=== PATIENT | male | born 1960 | race Caucasian/White ===

== ENCOUNTER 2020-04-03 07:38 | Outpatient (CLI) | payer OTHER, SELFPAY ==
[2020-04-03 08:10] LABS: Hematocrit 49.5 % (42.0-52.0); Hemoglobin 16.2 g/dL (14.0-18.0); Mean Corpuscular HGB Conc 32.7 g/dl (32-36); Mean Corpuscular Hemoglobin 31.3 pg (26-34); Mean Corpuscular Volume 95.6 fl (80-100); Mean Platelet Volume 10.1 fl (7.4-10.4); Platelet Count Result 301 k/mm3 (150-375); Red Blood Count 5.18 M/mm3 (4.6-6.20); Red Cell Distribution Width 14.5 % (11.5-14.5); White Blood Count 12.9 K/mm3 (4.5-10.0)
[2020-04-03 08:27] LABS: Alanine Aminotransferase 40 U/L (4-50); Albumin Level 4.6 g/dL (3.5-5.1); Alkaline Phosphatase 68 U/L (38-126); Aspartate Amino Transferase 42 U/L (17-59); Bilirubin,Total 0.7 mg/dL (0.2-1.3); Blood Urea Nitrogen 19 mg/dL (9-20); Calcium 9.8 mg/dL (8.4-10.2); Carbon Dioxide 32 mmol/L (22-30); Chloride 98 mmol/L (98-107); Cholesterol 315 mg/dL (0-200); Estimated Glomerular Filt Rate > 60; Glucose 114 mg/dL (75-110); HDL Direct 36 mg/dL; Potassium 5.1 mmol/L (3.4-5.0); Sodium 136 mmol/L (137-145); Triglycerides 269 mg/dL (<150)
[2020-04-03 08:38] LABS: LDL Cholesterol Direct 199 mg/dL
[2020-04-03 08:54] LABS: Thyroid Stimulating Hormone 0.839 uIU/mL (0.465-4.680)
[2020-04-03 09:05] LABS: Free T4 Free Thyroxine 1.25 ng/mL (0.78-2.19)
== END 2020-04-03 07:39 | disposition home or self-care (01) ==
LOC: ANHLAB 07:40
PROVIDERS: PCP Internal Medicine; Visit Provider Internal Medicine
DX: E03.9 Hypothyroidism, unspecified (principal); Q45.3 Other congenital malformations of pancreas and pancreatic duct; R53.83 Other fatigue
CPT/HCPCS: 36415; 80053; 80061; 84439; 84443; 85027

== ENCOUNTER 2020-07-24 08:11 | Outpatient (CLI) | payer OTHER, SELFPAY ==
[2020-07-24 08:37] LABS: Alanine Aminotransferase 29 U/L (4-50); Albumin Level 4.3 g/dL (3.5-5.1); Alkaline Phosphatase 62 U/L (38-126); Anion Gap 5 mmol/L (8-16); Aspartate Amino Transferase 32 U/L (17-59); Bilirubin,Total 0.6 mg/dL (0.2-1.3); Blood Urea Nitrogen 22 mg/dL (9-20); Calcium 9.2 mg/dL (8.4-10.2); Carbon Dioxide 34 mmol/L (22-30); Chloride 100 mmol/L (98-107); Cholesterol 290 mg/dL (0-200); Estimated Glomerular Filt Rate > 60; Glucose 112 mg/dL (75-110); HDL Direct 32 mg/dL; Potassium 4.1 mmol/L (3.4-5.0); Sodium 139 mmol/L (137-145); Triglycerides 231 mg/dL (<150)
[2020-07-24 08:49] LABS: LDL Cholesterol Direct 193 mg/dL
== END 2020-07-24 08:12 | disposition home or self-care (01) ==
PROVIDERS: PCP Internal Medicine; Visit Provider Internal Medicine
DX: R73.9 Hyperglycemia, unspecified (principal); E78.5 Hyperlipidemia, unspecified
CPT/HCPCS: 36415; 80053; 80061

== ENCOUNTER 2020-11-25 09:05 | Outpatient (CLI) | payer OTHER, SELFPAY ==
--- NOTE | ~2020-11-25 | MR_ITS ---
EXAMINATION: MR cervical spine wo con EXAM DATE: 11/25/2020 09:48 INDICATION: Head and neck pain for a few months. Cervicalgia. TECHNIQUE: Multi-sequential, multiplanar MR images of the cervical spine were obtained without contra st. Axial T2, axial T2 MERGE sequence. Sagittal T1, T2, T2 fat saturation images also obtained. Com parison is made to prior examination from 03/19/2006. FINDINGS: Interval cervical fusion C4-6. There is posterior fusion C6-T1. Osseous fusion of the C7-T 1 vertebral bodies. Moderate to severe disc disease C3-4 and moderate at the imaged upper thoracic le vels. The vertebral bodies are aligned in the AP dimension. The spinal cord signal intensity and i ntrinsic morphology is normal. Cervicomedullary junction is normal in appearance. There are no susp icious marrow signal abnormalities. Paraspinal soft tissue is unremarkable. Level by level evaluation: C2-C3: There is a mild diffuse disc bulge. Uncovertebral joint arthropathy: Mild left. Facet joint arthropathy: Moderate left, mild right. Neural foraminal stenosis: Moderate left. Central canal stenosis: No stenosis. C3-C4: There is a mild to moderate diffuse disc bulge asymmetric to the left Uncovertebral joint arthropathy: Moderate left, mild to moderate right. Facet joint arthropathy: Moderate to severe left, mild to moderate right. Neural foraminal stenosis: Severe left, mild right. Central canal stenosis: Mild . Central canal measures 7-8 mm in mid sagittal AP diameter . C4-C5: This level is fused. Uncovertebral joint arthropathy: Mild. Facet joint arthropathy: Mild. Neural foraminal stenosis: Mild bilateral. Central canal stenosis: No stenosis. C5-C6: This level is fused. Uncovertebral joint arthropathy: Moderate bilateral. Facet joint arthropathy: Mild bilateral. Neural foraminal stenosis: Moderate left, mild to moderate right. Central canal stenosis: No stenosis. C6-C7: There is a mild diffuse disc bulge. Uncovertebral joint arthropathy: Moderate bilateral. Facet joint arthropathy: Mild to moderate bilateral. Neural foraminal stenosis: Moderate bilateral. Central canal stenosis: Minimal. C7-T1: This level is fused. Uncovertebral joint arthropathy: Mild. Facet joint arthropathy: Poorly visualized. Neural foraminal stenosis: Mild. Central canal stenosis: No stenosis. IMPRESSION: 1. Cervical thoracic fusion. 2. C3-4 severe left neural foraminal stenosis. 3. Less stenosis at the levels. Reviewed, dictated and finalized at location A. Y II PAINTER
== END 2020-11-25 09:06 ==
PROVIDERS: PCP Internal Medicine; Visit Provider Internal Medicine
DX: M54.2 Cervicalgia (principal); Z98.1 Arthrodesis status; M48.02 Spinal stenosis, cervical region
CPT/HCPCS: 72141

== ENCOUNTER 2022-07-23 07:48 | Outpatient (CLI) | payer OTHER, SELFPAY ==
[2022-07-23 08:21] LABS: Alanine Aminotransferase 25 U/L (6-50); Albumin Level 3.9 g/dL (3.5-5.1); Alkaline Phosphatase 44 U/L (38-126); Anion Gap 7 mmol/L (8-16); Aspartate Amino Transferase 26 U/L (17-59); Bilirubin,Total 0.5 mg/dL (0.2-1.3); Blood Urea Nitrogen 21 mg/dL (9-20); Calcium 8.6 mg/dL (8.4-10.2); Carbon Dioxide 30 mmol/L (22-30); Chloride 103 mmol/L (98-107); Cholesterol 165 mg/dL (0-200); Estimated Glomerular Filt Rate > 60; Glucose 104 mg/dL (65-110); HDL Direct 31 mg/dL; Potassium 4.5 mmol/L (3.4-5.0); Sodium 140 mmol/L (137-145); Triglycerides 136 mg/dL (<150)
[2022-07-23 08:33] LABS: LDL Cholesterol Direct 97 mg/dL
== END 2022-07-23 07:49 | disposition home or self-care (01) ==
PROVIDERS: PCP Internal Medicine; Visit Provider Internal Medicine
DX: E78.5 Hyperlipidemia, unspecified (principal)
CPT/HCPCS: 36415; 80053; 80061

== ENCOUNTER 2024-09-27 12:32 | Outpatient (CLI) | payer MEDICARE, OTHER, SELFPAY ==
--- NOTE | ~2024-09-27 | XR_ITS ---
XR hip BI 2V w AP pelvis Ordering provider: Victoriano Rivera DO History: . M25.559 - Pain in unspecified hip . Comparison: None. FINDINGS: BONES: No acute fracture or dislocation. HIP JOINT SPACES: Normal. SACROILIAC JOINT SPACES/LUMBAR SPINE: The sacroiliac joint spaces are normal. Mild degenerative woo es of the visualized lower lumbar spine. Postoperative changes in the lower lumbar area. PUBIC SYMPHYSIS: Normal. SOFT TISSUES: Normal. IMPRESSION: No acute osseous abnormality of the bilateral hips and pelvis. Reviewed, dictated and finalized at location A. REPRESENTATIVE
== END 2024-09-27 12:33 | disposition home or self-care (01) ==
PROVIDERS: PCP Internal Medicine; Visit Provider Internal Medicine
DX: M25.551 Pain in right hip (principal); M25.552 Pain in left hip
CPT/HCPCS: 73521

== ENCOUNTER 2024-12-11 09:12 | Outpatient (CLI) | payer MEDICARE, SELFPAY ==
--- OUTSIDE RECORDS SUMMARY | 2024-12-11 10:08 | XMS_ITS | Clinical Summary ---
Author Organization [facility] Address [address] [place] [address] Care Team Providers Care Tour Operator Name Role Phone Rj Bryan MD Primary Care Provider [phone] Jose L Draper MD Unavailable [phone] Allergies Active Allergy Reactions Criticality Noted Date Comments Hydromorphone Hypotension High 08/13/2019 Morphine Hypotension High 01/22/2021 Medications gabapentin (NEURONTIN) 300 mg capsule Take 2 capsules (600 mg total) by mouth 2 (two) times a day 6 Active niacin 500 mg tablet Take 3 tablets (1,500 mg total) by mouth nightly 3 caps at bedtime Active calcium carbonate (OS-MANJULA) 1,500 mg (600 mg of elemental calcium) tablet Take 600 mg by mouth 2 (two) times a day 9 Active ascorbic acid (VITAMIN C) 1,000 mg tablet Take 0.5 tablets (500 mg total) by mouth daily Active amitriptyline (ELAVIL) 25 mg tablet Take 1 tablet (25 mg total) by mouth nightly 9 Active naproxen (NAPROSYN) 500 mg tablet Take 1 tablet (500 mg total) by mouth 2 (two) times a day as needed for pain 50 tablet 9 Active omega-3 fatty acids 1,000 mg capsule Take 2 g by mouth daily Active omeprazole (PriLOSEC) 20 mg capsule Take 1 capsule (20 mg total) by mouth daily Active LORazepam (ATIVAN) 0.5 mg tablet Take 1 tablet (0.5 mg total) by mouth 2 (two) times a day as needed 0 2 Active testosterone cypionate (DEPO-TESTOTERO NE) 200 mg/mL injection Inject 1.5 mL (300 mg total) into the muscle as instructed every 30 (thirty) days 1.5 mL monthly 2 2 Active levothyroxine (SYNTHROID) 88 mcg tablet Take 1 tablet (88 mcg total) by mouth daily 3 Active sildenafiL (VIAGRA) 50 mg tablet Take 1 tablet (50 mg total) by mouth daily 4 Active multivitamin-mi nerals-lutein tablet Take by mouth daily Active indapamide (LOZOL) 1.25 mg tablet Take 1 tablet (1.25 mg total) by mouth daily 90 tablet 3 4 Active ezetimibe (ZETIA) 10 mg tablet Take 1 tablet (10 mg total) by mouth daily 90 tablet 3 4 Active atorvastatin (LIPITOR) 40 mg tablet TAKE 1 TABLET BY MOUTH DAILY 100 tablet 2 4 Active amLODIPine (NORVASC) 10 mg tablet TAKE 1 TABLET BY MOUTH NIGHTLY 100 tablet 2 4 Active Active Problems Problem Noted Date Diagnosed Date Primary hypertension 04/17/2023 Syncope 04/17/2023 Other hyperlipidemia 04/17/2023 Bradycardia 04/17/2023 Acute pancreatitis, unspecif ied complication status, unspecified pancreatitis type 10/26/2022 Chronic eczematous otitis externa of left ear Low back pain, non-specific 05/06/2021 Assessment & Plan (05/06/2021 1:49 PM CDT): Mr. Patino has a primary complaint of low back pain worst when going from a sitting to standing position. He can get episodic burning through the bilateral buttocks and posterior thighs with certain activities. We will get AP/F/E L-spine films and a new MRI of his lumbar spine to look for adjacent level stenosis and instability. We will refer him to Dr. Shoemaker for possible lumbar injections pending the results of these studies. I plan to see him in 6 months for follow-up. Cervicalgia 01/27/2021 Assessment & Plan (05/06/2021 1:50 PM CDT): Mr. Patino had cervicalgia with pseudoarthrosis at C56 and C67 with foraminal stenosis at these levels. His symptoms are largely resolved after injections by Dr. Shoemaker. We will continue to watch this conservatively. Assessment & Plan (01/27/2021 1:13 PM CDT): Mr. Patino has moderate to severe neck pain which is worse when coughing. He notes some numbness and tingling in his hands associated with this. We will get a CT myelogram of the cervical spine to evaluate for fusion and for any adjacent level compression to explain his symptoms. We will speak to him by phone about the results once they have been reviewed. We will set up a scheduled follow-up appointment in 4 months time I Pancreatic mass 08/13/2019 Constipation Surgical History Surgery Date Site/Laterality Comments EPIDURAL INJECTION LUMBOSACRAL 08/26/2016 N/A EPIDURAL INJECTION LUMBOSACRAL 07/15/2016 N/A VENTRAL HERNIA REPAIR With Mesh NECK SURGERY BACK SURGERY 09/25/2010 - 09/24/2011 L4-5 PSF ([facility]) SPINAL FUSION 09/25/2009 - 09/24/2010 C4-6 ACDF [facility] SPINAL FUSION 09/25/2013 - 09/24/2014 C5-7 PCF [facility] Medical History Medical History Date Comments Prostate hypertrophy Chronic back pain Hypothyroidism Hypertension Prostate disorder Arthritis Skin cancer Family History Medical History Relation Name Comments Diabetes Father Lung cancer Father Hypertension Mother Relation Name Status Comments Father Mother Social History Tobacco Use Types Packs/Day Years Used Date Smoking Tobacco: Never Cigarettes Smokeless Tobacco: Never Comments:Only smoked during college Alcohol Use Standard Drinks/Week Comments Defer 0 (1 standard drink = 0.6 oz pur e alcohol) AUDIT-C Answer Date Recorded Q1: How often do you have a drink containing alcohol? Never 10/27/2022 Q2: How many drinks containi ng alcohol do you have on a typical day when you are drinking? Patient does not drink Q3: How often do you have si x or more drinks on one occasion? Never 10/27/2022 PHQ-2 Answer Date Recorded PHQ-2 Total Score (If total score is 3 or more points, staff should administer the PHQ-9) 4 12/30/2020 Personal Safety Answer Date Recorded Have you ever been in or are you currently in a harmful physical or emotional relationship or is someone making you feel afraid or unsafe? 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 Gender Identity Male 06/05/2023 5:11 PM CDT Sexual Orientation Straight 06/05/2023 5: 11 PM CDT Obstetrics History Last Filed Vital Signs Vital Sign Reading Time Taken Comments Blood Pressure 136/79 06/24/2024 2:51 PM CDT Pulse 85 06/24/2024 2:51 PM CDT Temperature 37.1 C (98.8 F) 04/14/2023 3:38 AM CDT Respiratory Rate 22 04/14/2023 3:45 AM CDT Oxygen Saturation 97% 06/12/2024 3:29 PM CDT Inhaled Oxygen Concentration - - Weight 89.4 kg (197 lb) 06/12/2024 3:29 PM CDT Height 175.3 cm (5' 9 ) 06/12/2024 3:29 PM CDT Body Mass Index 29.09 06/12/2024 3:29 PM CDT Plan of Treatment Health Maintenance Due Date Last Done Comments Colon Cancer Screening-Colonoscopy 1960 Hepatitis C Screening 1960 Prostate Cancer Screening-PSA 1958 DTaP/Tdap/Td Vaccine (1 - Tdap) 1969 Hepatitis B Screening 1976 Pneumococcal vaccine 65+ (1 of 2 - PCV) 1977 Zoster Vaccine (1 of 2) 2008 Depression Screening 12/30/2021 12/30/2020, 12/31/19 21 Well Visit 65+ 2023 Fall Risk Assessment 10/28/2023 10/28/2022 Influenza Vaccine (#1) [address] [place] [address] [employer] OPEN ACCESS MEDICARE [employer] [facility] MED[facility] Address: [address] [address] [place] [address] MEDICARE [employer] [facility] MED[facility] Address: [address] [address] [place] [address] Advance Directives For more information, please contact: [phone] * Full Code (Latest Code Status on File) Date Activated Date Inactivated Comments 10/26/2022 9:48 PM 10/29/2022 4:50 PM * Full Code Date Activated Date Inactivated Comments 08/13/2019 3:50 AM 08/14/2019 3:59 PM Care Teams Tour Operator Relationship Specialty Start Date End Date Rj Bryan MD [address] [facility] [address] [place] [address] PCP - General 09/10/19 Jose L Draper MD [address] [facility] [address] [place] [address] Referring Physician Gastroenterology 01/21/20
--- OUTSIDE RECORDS SUMMARY | 2024-12-11 10:08 | XMS_ITS | Clinical Summary ---
Author Organization [facility] Address [facility] [place] [address] Care Team Providers Care Drum Drier Name Role Phone Rj Bryan MD Primary Care Provider [phone] Allergies Active Allergy Reactions Criticality Noted Date Comments Hydromorphone Other (see comment) High 03/19/2021 States lowers heart rate and blood pressure drastically. Morphine Other (see comment) High 03/19/2021 Low blood pressure, low heart rate drastically. Medications amitriptyline 25 MG tablet Take 25 mg by mouth nightly at bedtime. Active levothyroxine 125 MCG tablet Take 125 mcg by mouth every morning. Active gabapentin 300 MG capsule Take 300 mg by mouth 2 (two) times a day. Active naproxen 500 MG tablet Take 500 mg by mouth 2 (two) times daily with meals. Active calcium, elemental, 600 MG tablet Take 600 mg by mouth daily. Active lisinopril 20 MG tablet Take 20 mg by mouth daily. Active esomeprazole 20 MG capsule Take 20 mg by mouth 2 (two) times a day. Active finasteride 5 MG tablet Take 5 mg by mouth daily. Active niacin 500 MG Tab Take 2 tablets by mouth 3 (three) times daily. after meals Active omega-3 fatty acid 500 MG capsule Take 1,000 mg by mouth daily. Active Multiple Vitamin (MULTIVITAMIN ADULT OR) Take 1 tablet by mouth daily. Active Ascorbic Acid (VITAMIN C) 500 MG Cap Take 1 capsule by mouth daily. Active HYDROcodone-lalo taminophen 10-325 MG tablet Take 1 tablet by mouth every 6 (six) hours as needed for Pain. Active diazePAM 10 MG tablet 09/29/2021 Active finasteride 1 MG tablet 5 mg daily. Active levothyroxine 88 MCG tablet 08/20/2021 Activ e lisinopril 40 MG tablet 08/20/2021 Active LORazepam 0.5 MG tablet 05/14/2021 Active Naproxen-Esomep razole 500-20 MG Tab EC 1 tablet 2 (two) times daily. Active omeprazole 20 MG capsule Take 20 mg by mouth daily. Active testosterone cypionate 200 MG/ML injection 10/15/2021 Act yumi Ascorbic Acid 1000 MG Tab 500 mg daily. Active niacin 500 MG Tab Take 500 mg by mouth. Active fish oil (OMEGA-3 FATTY ACID) 1000 MG Cap capsule Active Active Problems Problem Noted Date Diagnosed Date Lumbar radiculopathy 07/30/2021 Family History Medical History Relation Comments COPD Brother Cancer Father lung cancer Father Alzheimers Mother Relation Status Comments Brother Alive Father Mother Social History Tobacco Use Types Packs/Day Years Used Date Smoking Tobacco: Former Smokeless Tobacco: Never Comments:stated smoked in Archive[employer] school not no more. Alcohol Use Standard Drinks/Week Comments Yes 0 (1 standard drink = 0.6 oz pur e alcohol) socially Education Answer Date Recorded What is the highest level of school you have completed or the highest degree you have received? 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 Not on file Not on file No t on file Last Filed Vital Signs Vital Sign Reading Time Taken Comments Blood Pressure 142/89 11/17/2021 9:23 AM WOOD MACHINIST APPRENTICE Pulse 72 11/17/2021 9:23 AM WOOD MACHINIST APPRENTICE Temperature 36.7 C (98.1 F) 11/17/2021 7:50 AM WOOD MACHINIST APPRENTICE Respiratory Rate 16 11/17/2021 9:13 AM WOOD MACHINIST APPRENTICE Oxygen Saturation 97% 11/17/2021 9:23 AM WOOD MACHINIST APPRENTICE Inhaled Oxygen Concentration - - Weight 93.4 kg (206 lb) 11/17/2021 7:50 AM WOOD MACHINIST APPRENTICE Height 175.3 cm (5' 9 ) 11/17/2021 7:50 AM WOOD MACHINIST APPRENTICE Body Mass Index 30.42 11/17/2021 7:50 AM WOOD MACHINIST APPRENTICE Plan of Treatment Health Maintenance Due Date Last Done Comments Colorectal Cancer Screening Colonoscopy (10 Years) 1958 Hepatitis C 1976 DTaP, Tdap and Td Vaccines ( 1 - Tdap) 1977 Zoster Vaccines (1 of 2) 2008 Pneumococcal Vaccine: 65+ Ye ars (1 of 1 - PCV) 2023 COVID-19 Vaccine (1 - 2023-2 5 season) 2024 Influenza Adult (#1) 2024 RSV Immunization or 60+ Years (1 - 1-dose 75+ series) 2033 Meningococcal B Vaccine Aged Out No l onger eligible based on patient's age to complete this topic Meningococcal Vaccine Aged Out No peyton chip eligible based on patient's age to complete this topic RSV Immunizations Under 20 Months Aged Out No longer eligible based on patient's age to complete [place] [address] [employer] Advance Directives Documents on File Type Date Recorded 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
--- OUTSIDE RECORDS SUMMARY | 2024-12-11 10:08 | XMS_ITS | Encounter Summary ---
Author Organization [facility] Address [address] [facility] [place] [address] Care Team Providers Care Blacksmith Supervisor Name Role Phone Delon Powell MD Primary Care Provider [phone] Encounter Details Date Type Department Care Team (Late st Contact Info) Description 03/01/2018 Lab Requisition [facility] [address] [place] [id number] Vasu Dhaliwal MD [address] [place] [address] Social History Tobacco Use Types Packs/Day Years Used Date Smoking Tobacco: Never Assessed Sex and Gender Information Value Date Recorded Sex Assigned at Not on file Gender Identity Not on file Sexual Orientation Not on file documented as of this encounter Plan of Treatment Not on file documented as of this encounter Procedures Procedure Name Priority Date/Time Associated Diagnosis Comments DERMATOPATHOLOGY Routine 02/28/2018 12:0 0 AM CDT documented in this encounter Results * DERMATOPATHOLOGY (02/28/2018 12:00 AM CDT) Case Report Dermatopathology Report Case: [id number] Authorizing Provider: Vasu Dhaliwal MD Collected: 02/28/2018 12:00 AM Pathologist: Bertha Ma MD Received: 03/01/2018 12:53 PM Specimens: A) - Skin, above left clavicle B) - Skin, left lateral breast in axilla line C) - Skin, right of center perineum 12:02 PM CDT DERMATOPATHOLOGY LABORATORY Final Diagnosis Specimen A. SKIN, above left clavicle: PIGMENTED SEBORRHEIC KERATOSIS (L82.1) NOT PRESENT AT SAMPLED MARGIN Specimen B. SKIN, left lateral breast in axilla line: PIGMENTED SEBORRHEIC KERATOSIS (L82.1) PRESENT AT MARGIN Specimen C. SKIN, right of center perineum: SQUAMOUS PAPILLOMA, BENIGN (D36.9) PRESENT AT MARGIN (see microscopic description and comment) 12:02 PM [facility] DERMATOPATHOLOGY LABORATORY Clinical History A-B: R/O dys nevus. Check margins. C: R/O wart vs tag vs condyloma. Check margins. 12:02 PM [facility] DERMATOPATHOLOGY LABORATORY Gross Description Specimen A: Received is one formalin filled container labeled with the patient's name and designated above left clavicle. The specimen consists of a shave biopsy measuring [id number]. The margin is inked green. Jar 0. Specimen B: Received is one formalin filled container labeled with the patient's name and designated left lateral breast in axilla line. The specimen consists of a shave biopsy measuring [id number]. The margin is inked green. Jar 0. Specimen C: Received is one formalin filled container labeled with the patient's name and designated right of center perineum. The specimen consists of a shave biopsy measuring [id number].The margin is inked green. Jar 0. 12:02 PM [facility] DERMATOPATHOLOGY LABORATORY Microscopic Description Specimen A. SKIN, above left clavicle: Sections show an acanthotic lesion composed of relatively uniform keratinocytes. There is hyperkeratosis and pseudo horn cysts. Pigment is present in the keratinocytes composing this tumor. This lesion is not present at the sampled margin of the specimen. Specimen B. SKIN, left lateral breast in axilla line: Sections show an acanthotic lesion composed of relatively uniform keratinocytes. There is hyperkeratosis and pseudo horn cysts. Pigment is present in the keratinocytes composing this tumor. This lesion is present at the margin of the specimen. Specimen C. SKIN, right of center perineum: Sections show a dome shaped lesion with overlying hyperkeratosis, mild papillomatosis and acanthosis and focally vacuolated keratinocytes. COMMENT: These histologic findings may represent an acrochordon (which is favored) or less likely a condyloma. Clinical correlation is recommended. 12:02 PM CDT DERMATOPATHOLOGY LABORATORY Disclaimer An external and internal positive and negative controls are appropriate for the histochemical, immunohistochemical and immunofluorescence stain(s) in this case (if any), except where stated explicitly. The performance characteristics of the stain(s) cited in this report were developed and its performance characteristic determined by the Dermatopathology Laboratory at [facility]. These tests need not be, and therefore are not, approved by the [place] Food and Drug Administration. The tests are used for clinical purposes. Billing Codes Specimen Charges Stain Charges 09505 [id number] 1 1 1 8 12:02 PM CDT DERMATOPATHOLOGY LABORATORY Embedded Images 8 12:02 PM CDT DERMATOPATHOLOGY LABORATORY Pathology/Cytology TISSUE SPECIMEN FROM SKIN / Unknown 02/28/2018 03/01/2018 12:53 PM CDT Miscellaneous samples (specimen) TISSUE SPECIMEN FROM SKIN / Unknown 02/28/2018 03/01/2018 12:53 PM CDT Miscellaneous samples (specimen) TISSUE SPECIMEN FROM SKIN / Unknown 02/28/2018 03/01/2018 12:53 PM CDT Vasu Dhaliwal MD LAB - PATHOLOGY/CYTO LOGY ORDERABLES DERMATOPATHOLOGY LABORATORY [facility] - Department of Dermatology [address] [place] [address] 5th Floor Lab [address] [phone] documented in this encounter Visit Diagnoses Not on filedocumented in this encounter Care Teams Blacksmith Supervisor Relationship Specialty Start Date End Date Delon Powell MD [address] [place] [id number] PCP - General 09/22/15 documented as of this encounter
--- OUTSIDE RECORDS SUMMARY | 2024-12-11 10:08 | XMS_ITS | Encounter Summary ---
Author Organization [facility] Address [address] [place] [address] Care Team Providers Care Computer Assistant Name Role Phone Delon Powell MD Primary Care Provider [phone] Encounter Details Date Type Department Care Team (Late st Contact Info) Description 01/16/2020 Lab Requisition [facility] D[facility] Lab [address] [place] [id number] Vasu Dhaliwal MD [address] [place] [address] Social History Tobacco Use Types [...] Priority Date/Time Associated Diagnosis Comments DERMATOPATHOLOGY Routine 01/15/2020 12:0 0 AM CDT documented in this encounter Results * DERMATOPATHOLOGY (01/15/2020 12:00 AM CDT) Case Report Dermatopathology Report Case: [id number] Authorizing Provider: Vasu Dhaliwal MD Collected: 01/15/2020 12:00 AM Ordering Location: [facility] Lab Received: 01/16/2020 12:59 PM Pathologist: Conchita Benjamin MD Specimen: Skin, left paraspinal mid back 0 3:35 PM CDT DERMATOPATHOLOGY LABORATORY Amended Report Clinical impression changed from R/O BCC to R/O EIC. 0 3:35 PM CDT DERMATOPATHOLOGY LABORATORY Final Diagnosis Specimen A. SKIN, left paraspinal mid back: EPIDERMOID CYST WITH EVIDENCE OF RUPTURE (L72.0) PRESENT AT MARGIN 0 3:35 PM CDT DERMATOPATHOLOGY LABORATORY Amendment electronically signed by Conchita Benjamin MD on 01/21/2020 at 3:35 PM Clinical History R/O EIC. 0 3:35 PM CDT DERMATOPATHOLOGY LABORATORY Gross Description Specimen A: Received is one formalin filled container labeled with the patient's name and designated left paraspinal mid back. The specimen consists of a non-oriented ellipse of skin measuring [id number]. The epidermal surface is unremarkable. The margin is inked green. The 12 o'clock and 6 o'clock tips are submitted in cassette 1. The remainder of the ellipse is serially sectioned and submitted in cassettes 2-5. Jar 0. 0 3:35 PM CDT DERMATOPATHOLOGY LABORATORY Microscopic Description Specimen A. SKIN, left paraspinal mid back: Within the dermis, there is a space lined by epithelium that resembles normal epidermis and the infundibular portion of the hair follicle. Surrounding this is an infiltrate with neutrophils, histiocytes, and multinucleated giant cells. This lesion is present at the base of the specimen. 0 3:35 PM CDT DERMATOPATHOLOGY LABORATORY Disclaimer An external and internal positive and negative controls are appropriate for the histochemical, immunohistochemical and immunofluorescence stain(s) in this case (if any), except where stated explicitly. The performance characteristics of the stain(s) cited in this report were developed and its performance characteristic determined by the Dermatopathology Laboratory at [facility], directed by Dr. Jeffrey Thomas. These tests need not be, and therefore are not, approved by the [place] Food and Drug Administration. The tests are used for clinical purposes. Billing Codes Specimen Charges Stain Charges 18011 1 0 3:35 PM CDT DERMATOPATHOLOGY LABORATORY Embedded Images 0 3:35 PM CDT DERMATOPATHOLOGY LABORATORY Pathology/Cytolog y TISSUE SPECIMEN FROM SKIN / Unknown 01/15/2020 01/16/2020 12:59 PM CDT Vasu Dhaliwal MD LAB - PATHOLOGY/CYTO LOGY ORDERABLES DERMATOPATHOLOGY LABORATORY [facility] - Department of Dermatology [address] [place] [address], 5th Floor Lab [address] [phone] documented in this encounter Visit Diagnoses Not on filedocumented in this encounter Care Teams Computer Assistant Relationship Specialty Start Date End Date Delon Powell MD [address] [place] [address] PCP - General 09/22/15 documented as of this encounter
--- OUTSIDE RECORDS SUMMARY | 2024-12-11 10:08 | XMS_ITS | Clinical Summary ---
Author Organization [facility] Address [address] [place] [address] Care Team Providers Care Pharmaceutical Process Engineer Name Role Phone Delon Powell MD Primary Care Provider [phone] Source Comments [facility],non-owned Affiliates and Associated Physician Practices is amultiple site organization consisting of ambulatory clinics and hospital sitesin [place], [place], [place] and [place]. This disclosure is being madepursuant to the Care Everywhere program and may not contain all information available regarding this patient. Last updated 18.[facility] [employer]inger[employer] Social History Tobacco Use Types Packs/Day Years Used Date Smoking Tobacco: Never Assessed Sex and Gender Information Value Date Recorded Sex Assigned at Not on file Gender Identity Not on file Sexual Orientation Not on file Plan of Treatment Health Maintenance Due Date Last Done Comments COLOGUARD (AGES 45-75) - COL ON CA SCREENING 1958 COLON MONITORING 1958 COLONOSCOPY - COLON CA SCREENING 1958 CT COLONOGRAPHY - COLON CA SCREENING 1958 Colorectal Cancer Screening 1958 FIT - COLON CA SCREENING 1958 FLEX SIG - COLON CA SCREENING 1958 LIPID TESTING 1958 HEPATITIS C SCREENING 05/29/1976 DTAP/TDAP/TD VACCINES (1 - Tdap) 1977 PNEUMOCOCCAL VACCINE 50+ (1 of 1 - PCV) 2008 ZOSTER VACCINE (1 of 2) 2008 COVID-19 VACCINE ( - 2023-2 5 season) 2024 INFLUENZA VACCINE (#1) 2024 DEPRESSION SCREENING 09/25/2024 Respiratory Syncytial Virus (RSV) Vaccine Pt: or over 60 yrs (1 - 1-dose 75+ series) 2033 HEPATITIS B VACCINE Aged Out No longe r eligible based on patient's age to complete this topic HIB VACCINE Aged Out No longer eligi ble based on patient's age to complete this topic HPV VACCINE Aged Out No longer eligi ble based on patient's age to complete this topic MENINGOCOCCAL (Group B) VACC INE SHARED DECISION-MAKING Aged Out No longer eligibl e based on patient's age to complete this topic MENINGOCOCCAL GROUPS A/C/Y/W VACCINE Aged Out No longer eligible b ased on patient's age to complete this topic Care Teams Pharmaceutical Process Engineer Relationship Specialty Start Date End Date Delon Powell MD [address] [place] [address] PCP - General 09/22/15
--- OUTSIDE RECORDS SUMMARY | 2024-12-11 10:08 | XMS_ITS | Encounter Summary ---
Author Organization [facility] Healthcare Address [address] [place] [address] Care Team Providers Care Correction Lieutenant Name Role Phone Rj Bryan MD Primary Care Provider [phone] Jose L Draper MD Unavailable [phone] Encounter Details Date Type Department Care Team (Late st Contact Info) Description 01/21/2021 Telephone [facility] - Imaging [address] [place] [address] Transcribed Order, Provider Social History Tobacco Use Types Packs/Day Years Used Date Smoking Tobacco: Never Cigarettes Smokeless Tobacco: Never Comments:Only smoked during college Alcohol Use Standard Drinks/Week Comments Defer 0 (1 standard drink = 0.6 oz pur e alcohol) AUDIT-C Answer Date Recorded Q1: How often do you have a drink containing alc ohol? Monthly or less 12/30/2020 Q2: How many drinks containi ng alcohol do you have on a typical day when you are drinking? 1 or 2 12/30/2020 Q3: How often do you have si x or more drinks on one occasion? 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
--- OUTSIDE RECORDS SUMMARY | 2024-12-11 10:08 | XMS_ITS | Encounter Summary ---
Author Organization [facility] Address [address] [facility] [place] [address] Care Team Providers Care Corncob Pipe Manufacturing Supervisor Name Role Phone Delon Powell MD Primary Care Provider [phone] Encounter Details Date Type Department Care Team (Late st Contact Info) Description 12/03/2020 Lab Requisition [facility] Derm[facility] Lab [address] [place] [id number] Vasu Dhaliwal MD [address] [place] [address] Social History Tobacco Use Types [...] Priority Date/Time Associated Diagnosis Comments DERMATOPATHOLOGY Routine 12/02/2020 3:[address] REPORTER documented in this encounter Results * DERMATOPATHOLOGY (12/02/2020 3:[address] REPORTER) Case Report Dermatopathology Report Case: [id number] Authorizing Provider: Vasu Dhaliwal MD Collected: 12/02/2020 03:33 AM Ordering Location: [facility] Derm[facility] Lab Received: 12/03/2020 01:40 PM Pathologist: Conchita Benjamin MD Specimen: Skin, right oral commissure 5:[address] REPORTER DERMATOPATHOLOGY LABORATORY Final Diagnosis Specimen A. SKIN, right oral commissure: LICHEN PLANUS (L43.9) (see microscopic description) 5:[address] REPORTER DERMATOPATHOLOGY LABORATORY Clinical History R/O lichen planus. 5:19 PM [facility] DERMATOPATHOLOGY LABORATORY Gross Description Specimen A: Received is one formalin filled container labeled with the patient's name and designated right oral commissure. The specimen consists of a punch biopsy measuring [id number], bisected. Jar 0. 5:19 PM [facility] DERMATOPATHOLOGY LABORATORY Microscopic Description Specimen A. SKIN, right oral commissure: There is saw-toothed epidermal hyperplasia, hypergranulosis, and compact hyperorthokeratosis . There is a lichenoid infiltrate of lymphocytes that obscures the dermal-epidermal junction in association with vacuolar alteration and necrotic keratinocytes. Grocott's methenamine silver (GMS) stain fails to highlight fungal elements in the available sections. 5:19 PM [facility] DERMATOPATHOLOGY LABORATORY Disclaimer An external and internal positive and negative controls are appropriate for the histochemical, immunohistochemical and immunofluorescence stain(s) in this case (if any), except where stated explicitly. The performance characteristics of the stain(s) cited in this report were developed and its performance characteristic determined by the Dermatopathology Laboratory at [facility], directed by Dr. Jeffrey Thomas. These tests need not be, and therefore are not, approved by the [place] Food and Drug Administration. The tests are used for clinical purposes. Billing Codes Specimen Charges Stain Charges 12443 1 25816 1 1 5:[address] REPORTER DERMATOPATHOLOGY LABORATORY Embedded Images 5:19 PM [facility] DERMATOPATHOLOGY LABORATORY Pathology/Cytolo gy TISSUE SPECIMEN FROM SKIN / Unknown 12/02/2020 3:[address] REPORTER 12/03/2020 1:[address] REPORTER Vasu Dhaliwal MD LAB - PATHOLOGY/CYTO LOGY ORDERABLES DERMATOPATHOLOGY LABORATORY [facility] - Department of Dermatology [address], [address] [phone] documented in this encounter Visit Diagnoses Not on filedocumented in this encounter Care Teams Corncob Pipe Manufacturing Supervisor Relationship Specialty Start Date End Date Delon Powell MD [address] [place] [address] PCP - General 09/22/15 documented as of this encounter
--- OUTSIDE RECORDS SUMMARY | 2024-12-11 10:08 | XMS_ITS | Encounter Summary ---
Author Organization 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
--- OUTSIDE RECORDS SUMMARY | 2024-12-11 10:08 | XMS_ITS | Encounter Summary ---
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
--- OUTSIDE RECORDS SUMMARY | 2024-12-11 10:08 | XMS_ITS | Encounter Summary ---
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 Gender Identity Male 06/05/2023 5:11 PM CDT Sexual Orientation Straight 06/05/2023 5: 11 PM CDT documented as of this encounter Plan of Treatment Not on file documented as of this encounter Visit Diagnoses Not on filedocumented in this encounter Care Teams Sales Agent Financial Report Service Relationship Specialty Start Date End Date Rj Bryan MD [address] [facility] [address] [place] [address] PCP - General 09/10/19 Jose L Draper MD [address] [facility] [address] [place] [address] Referring Physician Gastroenterology 01/21/20 documented as of this encounter
--- OUTSIDE RECORDS SUMMARY | 2024-12-11 10:08 | XMS_ITS | Referral Summary ---
Author Organization [facility] Address [address] [place] [address] Care Team Providers Care Keno Clerk Name Role Phone Rj Bryan MD Primary Care Provider [phone] Jose L Draper MD Unavailable [phone] Allergies Active Allergy Reactions Criticality Noted Date [...] months time I Pancreatic mass 08/13/2019 Constipation Social History Tobacco Use Types Packs/Day Years [...] you are drinking? 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 Gender Identity Male 06/05/2023 5:11 PM CDT Sexual Orientation Straight 06/05/2023 5: 11 PM CDT Last Filed Vital Signs Vital Sign Reading [...] 06/12/2024 3:29 PM CDT Plan of Treatment [place] [address] [employer] OPEN ACCESS MEDIC[employer] SOLUTIONS MEDICARE SOLUTIONS Advance Directives For more information, please contact: [phone] * Full Code (Latest Code Status on File) Date Activated Date Inactivated Comments 10/26/2022 9:48 PM 10/29/2022 4:50 PM * Full Code Date Activated Date Inactivated Comments 08/13/2019 3:50 AM 08/14/2019 3:59 PM Care Teams Keno Clerk Relationship Specialty Start Date End Date Rj Brayn MD [address] [facility] [address] [place] [address] PCP - General 09/10/19 Jose L Draper MD [address] [facility] [address] [place] [address] Referring Physician Gastroenterology 01/21/20
--- NOTE | 2024-12-11 11:00 | NEURO_ITS ---
Impression: # Complains of pain in lower extremities. History of 3 back surgeries. ? # Normal Nerve Conduction Study including sensory nerves. ? # Needle/EMG exam abnormal in right lower extremity with neurogenic changes ? but no fibrillations. ? # Findings suggestive of right sided neurogenic changes without evidence of peripheral ?neuropathy and also intact sensory nerves responses. ?Nerve Conduction Studies Anti Sensory Summary Table ?Stim Site NR Peak (ms) P-T Amp (?V) Site1 Site2 Delta-P (ms) Dist (cm) Arley (m/s) Left Sup Fibular Anti Sensory (Ant Lat Mall) 14 cm ? 3.6 5.3 14 cm Ant Lat Mall 3.6 16.0 44 Right Sup Fibular Anti Sensory (Ant Lat Mall) 14 cm ? 3.4 13.0 14 cm Ant Lat Mall 3.4 16.0 47 Left Sural Anti Sensory (Lat Mall) Calf ? 3.4 5.4 Calf Lat Mall 3.4 16.0 47 Right Sural Anti Sensory (Lat Mall) Calf ? 3.4 10.3 Calf Lat Mall 3.4 16.0 47 Motor Summary Table ?Stim Site NR Onset (ms) O-P Amp (mV) Site1 Site2 Delta-0 (ms) Dist (cm) Arley (m/s) Left Peroneal Motor (Vastus Med) Ankle ? 4.3 3.7 Popit Ankle 9.0 43.0 48 Popit ? 13.3 2.8 Right Peroneal Motor (Vastus Med) Ankle ? 3.8 3.4 Popit Ankle 9.1 43.0 47 Popit ? 12.9 3.3 Left Tibial Motor (Abd Pace Brev) Ankle ? 4.2 4.1 Knee Ankle 9.2 44.0 48 Knee ? 13.4 3.8 Right Tibial Motor (Abd Pace Brev) Ankle ? 4.3 5.7 Knee Ankle 8.3 43.0 52 Knee ? 12.6 5.4 F Wave Studies ?NR F-Lat (ms) L-R F-Lat (ms) Left Peroneal (Mrkrs) (EDB) ? 56.34 0.71 Right Peroneal (Mrkrs) (EDB) ? 55.63 0.71 Left Tibial (Mrkrs) (Abd Hallucis) ? 55.75 0.45 Right Tibial (Mrkrs) (Abd Hallucis) ? 55.30 0.45 EMG ?Side Muscle Nerve Root Ins Act Fibs Amp Dur Recrt Comment Right AntTibialis Dp Br Fibular L4-5 Nml Nml Nml Nml +1 Right Gastroc Tibial S1-2 Nml Nml Nml Nml +1 Right Fibularis Long Sup Br Fibular L5-S1 Nml Nml Nml Nml +1 Right Flex Dig Long Tibial L5-S2 Nml Nml Nml Nml +1 Right Ext Dig Brev Dp Br Fibular L5, S1 Nml Nml Nml Nml +1 Right QuadratusFem QuadFemoris L4-5, S1 Nml Nml Nml Nml +1 Left AntTibialis Dp Br Fibular L4-5 Nml Nml Nml Nml Nml Left Gastroc Tibial S1-2 Nml Nml Nml Nml Nml Left Fibularis Long Sup Br Fibular L5-S1 Nml Nml Nml Nml Nml Left Flex Dig Long Tibial L5-S2 Nml Nml Nml Nml Nml Left Ext Dig Brev Dp Br Fibular L5, S1 Nml Nml Nml Nml Nml Left QuadratusFem QuadFemoris L4-5, S1 Nml Nml Nml Nml Nml ? MTDD
== END 2024-12-11 09:13 | disposition home or self-care (01) ==
LOC: ANHNEURO 09:15
PROVIDERS: PCP Internal Medicine; Visit Provider Internal Medicine
DX: R94.131 Abnormal electromyogram [EMG] (principal)
CPT/HCPCS: 95886; 95910

== ENCOUNTER 2025-02-19 06:39 | Outpatient (CLI) | payer MEDICARE, SELFPAY ==
--- OUTSIDE RECORDS SUMMARY | 2025-02-19 06:42 | XMS_ITS | Encounter Summary ---
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 Gender Identity Male 06/05/2023 5:11 PM CDT Sexual Orientation Straight 06/05/2023 5: 11 PM CDT documented as of this encounter Plan of Treatment Not on file documented as of this encounter Visit Diagnoses Not on filedocumented in this encounter Care Teams Metaphysician Relationship Specialty Start Date End Date Rj Bryan MD [address] [facility] [address] [place] [address] PCP - General 09/10/19 12/22/24 No, Physician PCP - General 12/23/24 Jose L Draper MD [address] [facility] [address] [place] [address] Referring Physician Gastroenterology 01/21/20 documented as of this encounter
--- OUTSIDE RECORDS SUMMARY | 2025-02-19 06:42 | XMS_ITS | Encounter Summary ---
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
--- OUTSIDE RECORDS SUMMARY | 2025-02-19 06:42 | XMS_ITS | Clinical Summary ---
Author Organization [facility] Address [address] [place] [address] Care Team Providers Care Continuity Reader Name Role Phone Delon Powell MD Primary Care Provider [phone] Source Comments [facility],non-owned Affiliates and Associated Physician Practices is amultiple site organization consisting of ambulatory clinics and hospital sitesin [place], [place], [place] and [place]. This disclosure is being madepursuant to the Care Everywhere program and may not contain all information available regarding this patient. 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
--- OUTSIDE RECORDS SUMMARY | 2025-02-19 06:42 | XMS_ITS | Referral Summary ---
Author Organization [facility] Address [address] [place] [address] Care Team Providers Care Picked Edge Sewing Machine Operator Name Role Phone Jose L Draper MD Unavailable [phone] No, Physician Primary Care Provider [phone] Encounters Date Type Department Care Team Description 12/23/2024 9:30 AM CDT Office Visit [facility] Cardiology [address] [facility] Medicine 8th [place] [address] [place] [address] Sanjana Willis NP Primary hypertension (Primary Dx); Other hyperlipidemia from Last 3 Months Allergies Active Allergy Reactions Criticality Noted Date [...] MOUTH NIGHTLY 100 tablet 2 4 Active pregabalin (LYRICA) 75 mg capsule 5 Active solifenacin (VESIcare) 10 mg tablet 5 Active Active Problems Problem Noted Date Diagnosed Date Primary hypertension 04/17/2023 Assessment & Plan (12/23/2024 10:30 AM CDT): Stable in clinic today. We made no changes. Continue Lozol 1.25 mg daily and Norvasc 10 mg daily. Syncope 04/17/2023 Other hyperlipidemia 04/17/2023 Assessment & Plan (12/23/2024 10:38 AM CDT): Stable. Continue zetia and lipitor. 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 Gender Identity Male 06/05/2023 5:11 PM CDT Sexual Orientation Straight 06/05/2023 5: 11 PM CDT Last Filed Vital Signs Vital Sign Reading Time Taken Comments Blood Pressure 126/77 12/23/2024 9:31 AM CDT Pulse 71 12/23/2024 9:31 AM CDT Temperature 37.1 C (98.8 F) 04/14/2023 3:38 AM CDT Respiratory Rate 22 04/14/2023 3:45 AM CDT Oxygen Saturation 97% 12/23/2024 9:31 AM CDT Inhaled Oxygen Concentration - - Weight 86.6 kg (191 lb) 12/23/2024 9:31 AM CDT Height 175.3 cm (5' 9) 12/23/2024 9:31 AM CDT Body Mass Index 28.21 12/23/2024 9:31 AM CDT Plan of [place] [address] [employer] OPEN ACCESS Member Subscriber Plan / Payer (Ef fective 2019-Present) Name:Rodri Patino Relation to Subscriber:Self Name:Rodri Patino Payer ID:[id number] Type:[employer] HMO/PPO Address: [facility] [id number] [place] [address] [facility] MEDICARE ADVANTAGE [facility] Address: [address] [place] [phone] [facility] MEDICARE ADVANTAGE [facility] Address: [address] [place], [place] [id number] Advance Directives For more information, please contact: [phone] * Full Code (Latest Code Status on File) Date Activated Date Inactivated Comments 10/26/2022 9:48 PM 10/29/2022 4:50 PM * Full Code Date Activated Date Inactivated Comments 08/13/2019 3:50 AM 08/14/2019 3:59 PM Care Teams Picked Edge Sewing Machine Operator Relationship Specialty Start Date End Date No, Physician PCP - General 12/23/24 Jose L Draper MD Referring Physician Gastroenterology 01/21/20
--- OUTSIDE RECORDS SUMMARY | 2025-02-19 06:42 | XMS_ITS | Encounter Summary ---
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 Gender Identity Male 06/05/2023 5:11 PM CDT Sexual Orientation Straight 06/05/2023 5: 11 PM CDT documented as of this encounter Plan of Treatment Not on file documented as of this encounter Visit Diagnoses Not on filedocumented in this encounter Care Teams Show Card Letterer Relationship Specialty Start Date End Date Rj Bryan MD [address] [place] [address] PCP - General 09/10/19 12/22/24 No, Physician PCP - General 12/23/24 Jose L Draper MD [address] [place] [address] Referring Physician Gastroenterology 01/21/20 documented as of this encounter
--- OUTSIDE RECORDS SUMMARY | 2025-02-19 06:42 | XMS_ITS | Clinical Summary ---
Author Organization [facility] Address [address] [place] [address] Care Team Providers Care Shank Burnisher Name Role Phone Jose L Draper MD Unavailable [phone], Physician Primary Care Provider [phone] Allergies Active Allergy Reactions Criticality Noted Date [...] months time I Pancreatic mass 08/13/2019 Constipation Encounters Date Type Department Care Team Description 12/23/2024 9:30 AM CDT Office Visit [facility] Cardiology [address] [facility] 8th [place] [address] [place] [address] Sanjana Willis, ALLAN Primary hypertension (Primary Dx); Other hyperlipidemia from Last 3 Months Surgical History Surgery Date Site/Laterality Comments EPIDURAL INJECTION LUMBOSACRAL 08/26/2016 N/A EPIDURAL INJECTION LUMBOSACRAL 07/15/2016 N/A VENTRAL HERNIA REPAIR With Mesh NECK SURGERY BACK SURGERY 09/25/2010 - 09/24/2011 L4-5 PSF ([facility]) SPINAL FUSION 09/25/2009 - 09/24/2010 C4-6 ACDF [facility] SPINAL FUSION 09/25/2013 - 09/24/2014 C5-7 [facility] Medical History Medical History Date Comments Prostate [...] on file 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 Gender Identity Male 06/05/2023 5:11 PM [...] 12/23/2024 9:31 AM CDT Plan of Treatment Health Maintenance Due [...] Fall Risk Assessment 10/28/2023 10/28/2022 Influenza Vaccine (Season Ended) [address] [place] [address] [employer] OPEN ACCESS [facility] MEDICARE ADVANTAGE [facility] MEDICARE ADVANTAGE Advance Directives For more information, please contact: [phone] * Full Code (Latest Code Status on File) Date Activated Date Inactivated Comments 10/26/2022 9:48 PM 10/29/2022 4:50 PM * Full Code Date Activated Date Inactivated Comments 08/13/2019 3:50 AM 08/14/2019 3:59 PM Care Teams Shank Burnisher Relationship Specialty Start Date End Date No, Physician PCP - General 12/23/24 Jose L Draper MD Referring Physician Gastroenterology 01/21/20
--- OUTSIDE RECORDS SUMMARY | 2025-02-19 06:42 | XMS_ITS | Encounter Summary ---
Author Organization [facility] Address [address] [place] [address] Care Team Providers Care Sharepoint Specialist Name Role Phone Delon Powell MD Primary Care Provider [phone] Encounter Details Date Type Department Care Team (Late st Contact Info) Description 03/01/2018 Lab Requisition [facility] Care DermPath Lab [address] [place] [address] Vasu Dhaliwal MD [address] [place] [address] Social History Tobacco Use Types Packs/Day Years Used Date Smoking Tobacco: Never Assessed Sex and Gender Information Value Date Recorded Sex Assigned at Not on file 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 Gender Identity Not on file Sexual Orientation Not on file documented as of this encounter Plan of Treatment Not on file documented as of this encounter Procedures Procedure Name Priority Date/Time Associated Diagnosis Comments DERMATOPATHOLOGY Routine 02/28/2018 12:0 0 AM CDT documented in this encounter Results * DERMATOPATHOLOGY (02/28/2018 12:00 AM CDT) Case Report Dermatopathology Report Case: [id number] Authorizing Provider: Vasu Dhaliwal MD Collected: 02/28/2018 [...] (see microscopic description and comment) 12:02 PM [facility] DERMATOPATHOLOGY LABORATORY at 1202 CDT Clinical History A-B: R/O dys nevus. Check margins. C: R/O wart vs tag vs condyloma. Check margins. 12:02 PM T DERMATOPATHOLOGY LABORATORY Gross Description Specimen A: Received is one formalin filled container labeled with the patient's name and designated above left clavicle. The specimen consists of a shave biopsy measuring 5h1e6kb. The margin is inked green. Jar 0. Specimen B: Received is one formalin filled container labeled with the patient's name and designated left lateral breast in axilla line. The specimen consists of a shave biopsy measuring 34a9l4ub. The margin is inked green. Jar 0. Specimen C: Received is one formalin filled container labeled with the patient's name and designated right of center perineum. The specimen consists of a shave biopsy measuring 3g6b0yr.The margin is inked green. Jar 0. 12:02 PM T DERMATOPATHOLOGY LABORATORY Microscopic Description Specimen A. SKIN, [...] likely a condyloma. Clinical correlation is recommended. 06/08/201 8 12:02 PM CDT DERMATOPATHOLOGY LABORATORY Disclaimer An external and internal positive and negative controls are appropriate for the histochemical, immunohistochemical and immunofluorescence stain(s) in this case (if any), except where stated explicitly. The performance characteristics of the stain(s) cited in this report were developed and its performance characteristic determined by the Dermatopathology Laboratory at [facility]. These tests need not be, and therefore are not, approved by the [place] Food and Drug Administration. The tests are used for clinical purposes. Billing Codes Specimen Charges Stain Charges 33779 18312 62345 1 1 1 8 12:02 PM CDT DERMATOPATHOLOGY LABORATORY Embedded Images 8 12:02 PM CDT DERMATOPATHOLOGY LABORATORY Pathology/Cytology TISSUE SPECIMEN FROM SKIN / Unknown 02/28/2018 03/01/2018 12:53 PM CDT Miscellaneous samples (specimen) TISSUE SPECIMEN FROM SKIN / Unknown 02/28/2018 03/01/2018 12:53 PM CDT Miscellaneous samples (specimen) TISSUE SPECIMEN FROM SKIN / Unknown 02/28/2018 03/01/2018 12:53 PM CDT Vasu Dhaliwal MD LAB - PATHOLOGY/CYTOLOGY ORD ERABLES Final Result DERMATOPATHOLOGY LABORATORY [facility] - Department of Dermatology [address] [place] [address], 5th [place] [address], [facility] [phone] documented in this encounter Visit Diagnoses Not on filedocumented in this encounter Care Teams Sharepoint Specialist Relationship Specialty Start Date End Date Delon Powell MD [address] [place] [address] PCP - General 09/22/15 documented as of this encounter
--- OUTSIDE RECORDS SUMMARY | 2025-02-19 06:42 | XMS_ITS | Encounter Summary ---
Author Organization [facility] Address [address] [place] [address] Care Team Providers Care Laboratory Machinist Name Role Phone Delon Powell MD Primary Care Provider [phone] Encounter Details Date Type Department Care Team (Late st Contact Info) Description 12/03/2020 Lab Requisition [facility] DermPath Lab [address] [place] [address] Vasu Dhaliwal MD [address] [place] [address] Social History Tobacco Use Types Packs/Day Years Used Date Smoking Tobacco: Never Assessed Sex and Gender Information Value Date Recorded Sex Assigned at Not on file Legal Sex Male 6:19 PM DOUGHNUT 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 Gender Identity Not on file Sexual Orientation Not on file documented as of this encounter Plan of Treatment Not on file documented as of this encounter Procedures Procedure Name Priority Date/Time Associated Diagnosis Comments DERMATOPATHOLOGY Routine 12/02/2020 3:33 AM DOUGHNUT DOUGH MIXER documented in this encounter Results * DERMATOPATHOLOGY (12/02/2020 3:33 AM DOUGHNUT DOUGH MIXER) Case Report Dermatopathology Report Case: [id number] Authorizing Provider: Vasu Dhaliwal MD Collected: 12/02/2020 03:33 AM Ordering Location: [facility] DermPath Lab Received: 12/03/2020 01:40 PM Pathologist: Conchita Benjamin MD Specimen: Skin, right oral commissure 5:19 PM DOUGHNUT DOUGH MIXER DERMATOPATHOLOGY LABORATORY Final Diagnosis Specimen A. SKIN, right oral commissure: LICHEN PLANUS (L43.9) (see microscopic description) 5:19 PM DOUGHNUT DOUGH MIXER DERMATOPATHOLOGY LABORATORY at 1719 DOUGHNUT DOUGH MIXER Clinical History R/O lichen planus. 1 5:19 PM [facility] DERMATOPATHOLOGY LABORATORY Gross Description Specimen A: Received is one formalin filled container labeled with the patient's name and designated right oral commissure. The specimen consists of a punch biopsy measuring 4m4l8ff, bisected. Jar 0. 1 5:19 PM [facility] DERMATOPATHOLOGY LABORATORY Microscopic Description Specimen A. SKIN, right oral commissure: There is saw-toothed epidermal hyperplasia, hypergranulosis, and compact hyperorthokeratosis . There is a lichenoid infiltrate of lymphocytes that obscures the dermal-epidermal junction in association with vacuolar alteration and necrotic keratinocytes. Grocott's methenamine silver (GMS) stain fails to highlight fungal elements in the available sections. 5:19 PM [facility] DERMATOPATHOLOGY LABORATORY Disclaimer An external and internal positive and negative controls are appropriate for the histochemical, immunohistochemical and immunofluorescence stain(s) in this case (if any), except where stated explicitly. The performance characteristics of the stain(s) cited in this report were developed and its performance characteristic determined by the Dermatopathology Laboratory at [facility], directed by Dr. Jeffrey Thomas. These tests need not be, and therefore are not, approved by the [place] Food and Drug Administration. The tests are used for clinical purposes. Billing Codes Specimen Charges Stain Charges 94344 1 22611 1 1 5:19 PM [facility] DERMATOPATHOLOGY LABORATORY Embedded Images 1 5:19 PM [facility] DERMATOPATHOLOGY LABORATORY Pathology/Cytolo gy TISSUE SPECIMEN FROM SKIN / Unknown 12/02/2020 3:33 AM DOUGHNUT DOUGH MIXER 12/03/2020 1:40 PM DOUGHNUT DOUGH MIXER us Vasu Dhaliwal MD LAB - PATHOLOGY/CYTOLOGY ORD ERABLES Final Result DERMATOPATHOLOGY LABORATORY [facility] - Department of Dermatology [address], [address] [phone] documented in this encounter Visit Diagnoses Not on filedocumented in this encounter Care Teams Laboratory Machinist Relationship Specialty Start Date End Date Delon Powell MD [address] [place] [address] PCP - General 09/22/15 documented as of this encounter
--- OUTSIDE RECORDS SUMMARY | 2025-02-19 06:42 | XMS_ITS | Encounter Summary ---
Author Organization [facility] Address [address] [place] [address] Care Team Providers Care Contact Center Specialist Name Role Phone Delon Powell MD Primary Care Provider [phone] Encounter Details Date Type Department Care Team (Late st Contact Info) Description 01/16/2020 Lab Requisition [facility] DermPath Lab [address] [place] [address] Vasu Dhaliwal MD [address] [place] [address] Social History Tobacco Use Types Packs/Day Years Used Date Smoking Tobacco: Never Assessed Sex and Gender Information Value Date Recorded Sex Assigned at Not on file 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 Gender Identity Not on file Sexual Orientation Not on file documented as of this encounter Plan of Treatment Not on file documented as of this encounter Procedures Procedure Name Priority Date/Time Associated Diagnosis Comments DERMATOPATHOLOGY Routine 01/15/2020 12:0 0 AM CDT documented in this encounter Results * DERMATOPATHOLOGY (01/15/2020 12:00 AM CDT) Case Report Dermatopathology Report Case: [id number] Authorizing Provider: Vasu Dhaliwal MD Collected: 01/15/2020 12:00 AM Ordering Location: [facility] Derm[facility] Lab Received: 01/16/2020 12:59 PM Pathologist: [...] by Conchita Benjamin MD on 01/21/2020 at 1535 CDT at 1425 CDT Clinical History R/O EIC. 0 3:35 PM CDT DERMATOPATHOLOGY LABORATORY Gross Description Specimen A: Received is one formalin filled container labeled with the patient's name and designated left paraspinal mid back. The specimen consists of a non-oriented ellipse of skin measuring [id number]. The epidermal surface is unremarkable. The margin [...] characteristic determined by the Dermatopathology Laboratory at [facility], directed by Dr. Jeffrey Thomas. These tests need not be, and therefore are not, approved by the [place] Food and Drug Administration. The tests are used for clinical purposes. Billing Codes Specimen Charges Stain Charges 15138 1 0 3:35 PM CDT DERMATOPATHOLOGY LABORATORY Embedded Images 0 3:35 PM CDT DERMATOPATHOLOGY LABORATORY Pathology/Cytolog y TISSUE SPECIMEN FROM SKIN / Unknown 01/15/2020 01/16/2020 12:59 PM CDT Vasu Dhaliwal MD LAB - PATHOLOGY/CYTOLOGY ORD ERABLES Edited Result - Final DERMATOPATHOLOGY LABORATORY [facility] - Department of Dermatology [address] [facility], 5th [place] [address], [place] [phone] documented in this encounter Visit Diagnoses Not on filedocumented in this encounter Care Teams Contact Center Specialist Relationship Specialty Start Date End Date Delon Powell MD [address] [place] [address] PCP - General 09/22/15 documented as of this encounter
--- OUTSIDE RECORDS SUMMARY | 2025-02-19 06:42 | XMS_ITS | Encounter Summary ---
Author Organization 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 Gender Identity Male 06/05/2023 5:11 PM CDT Sexual Orientation Straight 06/05/2023 5: 11 PM CDT documented as of this encounter Plan of Treatment Not on file documented as of this encounter Visit Diagnoses Not on filedocumented in this encounter Care Teams Self Propelled Hot Mix Roller Operator Relationship Specialty Start Date End Date Rj Bryan MD [address] [place] [address] PCP - General 09/10/19 12/22/24 No, Physician PCP - General 12/23/24 Jose L Draper MD [address] [place] [address] Referring Physician Gastroenterology 01/21/20 documented as of this encounter
[2025-02-19 07:48] LABS: Basophils Absolute Auto 0.1 K/mm3 (0.0-0.1); Basophils Percent Auto 0.5 % (0.2-1.2); Eosinophils Absolute Auto 0.5 K/mm3 (0-0.3); Eosinophils Percent Auto 2.9 % (0-4.4); Hematocrit 47.4 % (42.0-52.0); Hemoglobin 15.2 g/dL (14.0-18.0); Immature Granulocyte Absolute 0.08 K/mm3 (0.00-0.031); Immature Granulocyte Percent A 0.5 % (0-0.5); Lymphocytes Percent Auto 12.9 % (18.3-44.2); Mean Corpuscular HGB Conc 32.1 g/dl (32-36); Mean Corpuscular Hemoglobin 30.2 pg (26-34); Mean Platelet Volume 9.9 fl (7.4-10.4); Monocytes Absolute Auto 1.4 K/mm3 (0.1-0.6); Neutrophils Absolute Auto 11.5 K/mm3 (1.3-6.7); Neutrophils Percent Auto 74.2 % (45.5-73.1); Platelet Count Result 320 k/mm3 (150-375); Red Blood Count 5.04 M/mm3 (4.6-6.20); Red Cell Distribution Width 15.9 % (11.5-14.5); White Blood Count 15.5 K/mm3 (4.5-10.0)
[2025-02-19 08:00] LABS: Alanine Aminotransferase 28 U/L (6-50); Albumin Level 4.6 g/dL (3.5-5.1); Alkaline Phosphatase 60 U/L (38-126); Anion Gap 6 mmol/L (4-12); Aspartate Amino Transferase 42 U/L (17-59); Bilirubin,Total 0.7 mg/dL (0.2-1.3); Blood Urea Nitrogen 23 mg/dL (9-20); Calcium 9.7 mg/dL (8.4-10.2); Carbon Dioxide 33 mmol/L (22-30); Chloride 101 mmol/L (98-107); Cholesterol 176 mg/dL (0-200); Estimated Glomerular Filt Rate > 60; Glucose 114 mg/dL (65-110); HDL Direct 46 mg/dL; Potassium 4.4 mmol/L (3.4-5.0); Sodium 140 mmol/L (137-145); Triglycerides 138 mg/dL (<150)
[2025-02-19 08:12] LABS: LDL Cholesterol Direct 84 mg/dL
[2025-02-19 08:20] LABS: Hemoglobin A1C 5.8 % (<5.7)
[2025-02-19 08:45] LABS: Free T4 Free Thyroxine 1.26 ng/dL (0.78-2.19)
[2025-02-19 09:18] LABS: Hepatitis C Virus Antibody Negative (Negative)
== END 2025-02-19 06:40 | disposition home or self-care (01) ==
PROVIDERS: PCP Internal Medicine; Visit Provider Internal Medicine
DX: E03.9 Hypothyroidism, unspecified (principal); E78.5 Hyperlipidemia, unspecified; I10 Essential (primary) hypertension; R53.83 Other fatigue; R73.9 Hyperglycemia, unspecified; Z11.59 Encounter for screening for other viral diseases
CPT/HCPCS: 36415; 80053; 80061; 83036; 84439; 84443; 85025; 86803

== ENCOUNTER 2025-08-13 09:00 | Outpatient (CLI) | payer MEDICARE, SELFPAY ==
--- NOTE | ~2025-08-13 | XR_ITS ---
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 Findings: No acute fracture or malalignment. No significant degenerative changes. Soft tissues unremarkable. Impression: No acute fracture or malalignment. Reviewed, dictated and finalized at location P. TIC ATT[employer]ER COVERSTITCH Impression: No acute fracture or malalignment.
--- OUTSIDE RECORDS SUMMARY | 2025-08-13 11:24 | XMS_ITS | Encounter Summary ---
Author Organization [facility] Address [address] [facility] [place] [address] Care Team Providers Care Supervisor [place] Name Role Phone Delon Powell MD Primary Care Provider [phone] Encounter Details Date Type Department Care Team (Late st Contact Info) Description 03/01/2018 Lab Requisition [facility] Care DermPath Lab [address] [place] [address] Vasu Dhaliwal MD [address] [place] [address] Social History Tobacco Use Types Packs/Day Years Used Date Smoking Tobacco: Never Assessed Sex and Gender Information Value Date Recorded Sex Assigned at Not on file 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 Gender Identity Not on file Sexual Orientation Not on file documented as of this encounter Plan of Treatment Not on file documented as of this encounter Procedures Procedure Name Priority Date/Time Associated Diagnosis Comments DERMATOPATHOLOGY Routine 02/28/2018 12:0 0 AM CDT documented in this encounter Results * DERMATOPATHOLOGY (02/28/2018 12:00 AM CDT) Case Report Dermatopathology Report Case: [id number] Authorizing Provider: Vasu Dhaliwal MD Collected: 02/28/2018 [...] (see microscopic description and comment) 12:02 PM [facility] DERMATOPATHOLOGY LABORATORY at 1202 CDT Clinical History A-B: R/O dys nevus. Check margins. C: R/O wart vs tag vs condyloma. Check margins. 12:02 PM T DERMATOPATHOLOGY LABORATORY Gross Description Specimen A: Received is one formalin filled container labeled with the patient's name and designated above left clavicle. The specimen consists of a shave biopsy measuring 5s6o4ve. The margin is inked green. Jar 0. Specimen B: Received is one formalin filled container labeled with the patient's name and designated left lateral breast in axilla line. The specimen consists of a shave biopsy measuring 55p5d3vd. The margin is inked green. Jar 0. Specimen C: Received is one formalin filled container labeled with the patient's name and designated right of center perineum. The specimen consists of a shave biopsy measuring 4x0s2nz.The margin is inked green. Jar 0. 12:02 [...] characteristic determined by the Dermatopathology Laboratory at [facility]. These tests need not be, and therefore are not, approved by the [place] Food and Drug Administration. The tests are used for clinical purposes. Billing Codes Specimen Charges Stain Charges 45824 88403 64788 1 1 1 8 12:02 PM CDT [...] PATHOLOGY/CYTOLOGY ORD ERABLES Final Result DERMATOPATHOLOGY LABORATORY [facility] - Department of Dermatology [address] [place] [address], 5th [place] [address], [facility] [phone] documented in this encounter Visit Diagnoses Not on filedocumented in this encounter Care Teams Supervisor [place] [employer] Relationship Specialty Start Date End Date Delon Powell MD [address] [place] [address] PCP - General 09/22/15 documented as of this encounter
--- OUTSIDE RECORDS SUMMARY | 2025-08-13 11:24 | XMS_ITS | Encounter Summary ---
Author Organization [facility] Address [address] [place] [address] Care Team Providers Care Exterminator Helper Name Role Phone Delon Powell MD Primary Care Provider [phone] Encounter Details Date Type Department Care Team (Late st Contact Info) Description 12/03/2020 Lab Requisition [facility] [address] [place] [address] Vasu Dhaliwal MD [address] [place] [address] Social History Tobacco Use Types Packs/Day Years Used Date Smoking Tobacco: Never Assessed Sex and Gender Information Value Date Recorded Sex Assigned at Not on file Legal Sex Male 6:19 PM ICT DEVELOPMENT MANAGER Gender Identity Not on file Sexual Orientation Not on file documented as of this encounter Plan of Treatment Not on file documented as of this encounter Procedures Procedure Name Priority Date/Time Associated Diagnosis Comments DERMATOPATHOLOGY Routine 12/02/2020 3:33 AM ICT DEVELOPMENT MANAGER documented in this encounter Results * DERMATOPATHOLOGY (12/02/2020 3:33 AM ICT DEVELOPMENT MANAGER) Case Report Dermatopathology Report Case: [id number] Authorizing Provider: Vasu Dhaliwal MD Collected: 12/02/2020 03:33 AM Ordering Location: [facility] Received: 12/03/2020 01:40 PM Pathologist: Conchita Benjamin MD Specimen: Skin, right oral commissure 5:19 PM ICT DEVELOPMENT MANAGER DERMATOPATHOLOGY LABORATORY Final Diagnosis Specimen A. SKIN, right oral commissure: LICHEN PLANUS (L43.9) (see microscopic description) 5:19 PM ICT DEVELOPMENT MANAGER DERMATOPATHOLOGY LABORATORY at 1719 ICT DEVELOPMENT MANAGER Clinical History R/O lichen planus. 1 5:19 PM [facility] DERMAT[facility] Gross Description Specimen A: Received is one formalin filled container labeled with the patient's name and designated right oral commissure. The specimen consists of a punch biopsy measuring [id number], bisected. Jar 0. 1 5:19 PM [facility] DERMATOPATH[facility] Microscopic Description Specimen A. SKIN, right oral commissure: There is saw-toothed epidermal hyperplasia, hypergranulosis, and compact hyperorthokeratosis . There is a lichenoid infiltrate of lymphocytes that obscures the dermal-epidermal junction in association with vacuolar alteration and necrotic keratinocytes. Grocott's methenamine silver (GMS) stain fails to highlight fungal elements in the available sections. 5:19 PM [facility] DERMATOPATH[facility]ORAT[facility] Disclaimer An external and internal positive and negative controls are appropriate for the histochemical, immunohistochemical and immunofluorescence stain(s) in this case (if any), except where stated explicitly. The performance characteristics of the stain(s) cited in this report were developed and its performance characteristic determined by the Dermatopathology Laboratory at [facility], directed by Dr. Jeffrey Thomas. These tests need not be, and therefore are not, approved by the [place] Food and Drug Administration. The tests are used for clinical purposes. Billing Codes Specimen Charges Stain Charges 92072 1 16973 1 1 5:19 PM [facility] Embedded Images 1 5:19 PM [facility] Pathology/Cytolo gy TISSUE SPECIMEN FROM SKIN / Unknown 12/02/2020 3:33 AM ICT DEVELOPMENT MANAGER 12/03/2020 1:40 PM ICT DEVELOPMENT MANAGER us Vasu Dhaliwal MD LAB - PATHOLOGY/CYTOLOGY ORD ERABLES Final Result DERMATOPATHOLOGY LABORATORY [facility] - Department of Dermatology [address], [address] [phone] documented in this encounter Visit Diagnoses Not on filedocumented in this encounter Care Teams Exterminator Helper Relationship Specialty Start Date End Date Delon Powell MD [address] [place] [address] PCP - General 09/22/15 documented as of this encounter
--- OUTSIDE RECORDS SUMMARY | 2025-08-13 11:24 | XMS_ITS | Encounter Summary ---
Author Organization [facility] Healthcare Address [address] [place] [address] Care Team Providers Care Logistics Planning Manager Name Role Phone Rj Bryan MD Primary Care Provider [phone] Jose L Draper MD Unavailable [phone] No, Physician Primary Care Provider Victoriano Rivera DO Primary Care Provider [phone] Encounter Details Date Type Department Care Team (Late st Contact Info) Description 01/21/2021 Telephone 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 Gender Identity Male 06/05/2023 5:11 PM CDT Sexual Orientation Straight 06/05/2023 5: 11 PM CDT documented as of this encounter Functional Status * Question Answer Date of Assessment Author MAP (mmHg) 146 01/22/2021 10:14 AM CDT Nelsy Castillo RN * Peoples Fall Risk Question Answer Date of Assessment Author History of Falling 0 01/22/2021 10:14 AM CD Nelsy Clarke RN Secondary Diagnosis 0 01/22/2021 10:14 AM C Nelsy Mckenzie RN Ambulatory Aids 0 01/22/2021 10:14 AM CDT Nelsy Funez RN Intravenous Therapy/Heparin/Saline Lock 0 01/22/2021 10:14 AM Nelsy Guillen RN Gait/Transferring 0 01/22/2021 10:14 AM Nelsy Guillen RN Mental Status 0 01/22/2021 10:14 AM Nelsy Rodriguez RN Peoples Fall Risk Score (Score >= 45 places fall precaution order) 0 01/22/2021 10:14 AM Nelsy Guillen RN documented as of this encounter Plan of Treatment Not on file documented as of this encounter Visit Diagnoses Not on filedocumented in this encounter Care Teams Logistics Planning Manager Relationship Specialty Start Date End Date Rj Bryan MD [address] [address] PCP - General 09/10/19 12/22/24 No, Physician PCP - General 12/23/24 07/08/25 Victoriano Rivera DO [address] [place] [address] PCP - General Internal Medicine 07/09/25 Jose L Draper MD [address] [address] Referring Physician Gastroenterology 01/21/20 documented as of this encounter
--- OUTSIDE RECORDS SUMMARY | 2025-08-13 11:24 | XMS_ITS | Encounter Summary ---
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 Gender Identity Male 06/05/2023 5:11 PM CDT Sexual Orientation Straight 06/05/2023 5: 11 PM CDT documented as of this encounter Plan of Treatment Not on file documented as of this encounter Visit Diagnoses Not on filedocumented in this encounter Care Teams Mid Wife Relationship Specialty Start Date End Date Rj Bryan MD [address] [facility] [address] [place] [address] PCP - General 09/10/19 12/22/24 No, Physician PCP - General 12/23/24 07/08/25 Victoriano Rivera DO [address] [place] [address] PCP - General Internal Medicine 07/09/25 Jose L Draper MD [address] [facility] [address] [place] [address] Referring Physician Gastroenterology 01/21/20 documented as of this encounter
--- OUTSIDE RECORDS SUMMARY | 2025-08-13 11:24 | XMS_ITS | Encounter Summary ---
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 Gender Identity Male 06/05/2023 5:11 PM [...] RN Mental Status 0 01/22/2021 10:14 AM PADMAJAT Nelsy Brooks RN Peoples Fall Risk Score (Score >= 45 places fall precaution order) 0 01/22/2021 10:14 AM Nelsy Guillen RN documented as of this encounter Plan of Treatment Not on file documented as of this encounter Visit Diagnoses Not on filedocumented in this encounter Care Teams Color Card Maker Relationship Specialty Start Date End Date Rj Bryan MD [address] [address] PCP - General 09/10/19 12/22/24 No, Physician PCP - General 12/23/24 07/08/25 Victoriano Rivera DO [address] [place] [address] PCP - General Internal Medicine 07/09/25 Jose L Draper MD [address] [facility] [address] [place] [address] Referring Physician Gastroenterology 01/21/20 documented as of this encounter
--- OUTSIDE RECORDS SUMMARY | 2025-08-13 11:24 | XMS_ITS | Clinical Summary ---
Author Organization [facility] Address [address] [place] [address] Care Team Providers Care Crew Car Driver Name Role Phone Delon Powell MD Primary Care Provider [phone] Source Comments [facility],non-owned Affiliates and Associated Physician Practices is amultiple site organization consisting of ambulatory clinics and hospital sitesin [place], [place], [place] and [place]. This disclosure is being madepursuant to the Care Everywhere program and may not contain all information available regarding this patient. 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
--- OUTSIDE RECORDS SUMMARY | 2025-08-13 11:24 | XMS_ITS | Encounter Summary ---
Author Organization [facility] Healthcare Address [address] [place] [address] Care Team Providers Care Director Of Vocational Guidance Name Role Phone Rj Bryan MD Primary Care Provider [phone] Jose L Draper MD Unavailable [phone], Physician Primary Care Provider [phone] Victoriano Rivera DO Primary Care Provider [phone] Encounter Details Date Type Department Care Team (Late st Contact Info) Description 03/05/2021 Telephone [facility] Imaging [address] [place] [id number] Denae Hodge RT Social History Tobacco Use [...] on file 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 [address] [place] [address] PCP - General 09/10/19 12/22/24 No, Physician PCP - General 12/23/24 07/08/25 Victoriano Rivera DO [address] [place] [address] PCP - General Internal Medicine 07/09/25 Jose L Draper MD [address] [facility] [address] [place] [address] Referring Physician Gastroenterology 01/21/20 documented as of this encounter
--- OUTSIDE RECORDS SUMMARY | 2025-08-13 11:24 | XMS_ITS | Clinical Summary ---
Author Organization [facility] Address [address] [place] [address] Care Team Providers Care Insurance Collector Name Role Phone Jose L Draper MD Unavailable [phone] Victoriano Rivera DO Primary Care Provider [phone] Allergies Active Allergy Reactions Criticality Noted Date [...] nerals-lutein tablet Take by mouth daily Active pregabalin (LYRICA) 75 mg capsule 5 Active solifenacin (VESIcare) 10 mg tablet 5 Active ezetimibe (ZETIA) 10 mg tablet TAKE 1 TABLET BY MOUTH DAILY 100 tablet 2 5 Active atorvastatin (LIPITOR) 40 mg tablet TAKE 1 TABLET BY MOUTH DAILY 100 tablet 2 5 Active indapamide (LOZOL) 1.25 mg tablet TAKE 1 TABLET BY MOUTH DAILY 100 tablet 2 5 Active amLODIPine (NORVASC) 10 mg tablet TAKE 1 TABLET BY MOUTH EVERY NIGHT 90 tablet 3 5 Active tadalafiL (CIALIS) 5 mg tablet Take 1 tablet (5 mg total) by mouth daily 5 Active Active Problems Problem Noted Date [...] Encounters Date Type Department Care Team Description 07/09/2025 4:15 PM CDT Office Visit [facility] Medicine Cardiology [address] 8th [place] [address] [place] [address] Nathan Muñoz MD Primary hypertension (Primary Dx); Dyslipidemia from Last 3 Months Surgical History Surgery [...] Packs/Day Years Used Date Smoking Tobacco: Former Cigarettes Smokeless Tobacco: Never Tobacco Cessation:Counseling Given: Not Answered Comments:Only smoked during college Alcohol Use Standard [...] on file 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 Gender Identity Male 06/05/2023 5:11 PM CDT Sexual Orientation Straight 06/05/2023 5: 11 PM CDT Last Filed Vital Signs Vital Sign Reading Time Taken Comments Blood Pressure 133/81 07/09/2025 3:29 PM CDT Pulse 80 07/09/2025 3:29 PM CDT Temperature 37.1 C (98.8 F) 04/14/2023 3:38 AM CDT Respiratory Rate 22 04/14/2023 3:45 AM CDT Oxygen Saturation 97% 07/09/2025 3:29 PM CDT Inhaled Oxygen Concentration - - Weight 81.3 kg (179 lb 3.2 oz) 07/09/2025 3:29 P M CDT Height 175.3 cm (5' 9) 07/09/2025 3:29 PM CDT Body Mass Index 26.46 07/09/2025 3:29 PM CDT Plan of Treatment Health Maintenance Due Date Last Done Comments Colon Cancer Screening-Colonoscopy 1960 Hepatitis C Screening 1960 Prostate Cancer Screening-PSA 1958 DTaP/Tdap/Td Vaccine (1 - Tdap) 1969 Hepatitis B Screening 1976 Pneumococcal vaccine 65+ (1 of 1 - PCV) 2008 Zoster Vaccine (1 of 2) 2008 Depression Screening 12/30/2021 12/30/2020, 12/31/19 21 Abdominal Aortic Aneurysm (A AA) Screen 2023 10/26/2022, 03/08/2021, 03/03/2020, Additional history exists Well Visit 65+ 2023 Fall Risk Assessment 10/28/2023 10/28/2022 Influenza Vaccine (#1) 2025 4, 08/15/2013, 07/04/2012 Procedures Procedure Name Priority Date/Time Associated Diagnosis Comments CT ABDOMEN PELVIS W CONTRAST ED 10/26/2022 6:10 PM HANGERSMITH from Last 3 Months or Most Recently Relevant to Health Maintenance Results * CT Abdomen Pelvis W Contrast (10/26/2022 6:10 PM HANGERSMITH) Anatomical Region Laterality Modality Body N/A Computed Tomogra phy 10/26/2022 6:20 PM HANGERSMITH Narrative 10/26/2022 6:29 PM HANGERSMITH EXAM DESCRIPTION: CT ABDOMEN PELVIS W CONTRAST REASON FOR STUDY: Constipation several days. Nausea. Bloating. TECHNIQUE: CT scan of the abdomen and pelvis performed with intravenous and without oral contrast using helical scanning technique with dynamic intravenous contrast injection. Reconstructed coronal and sagittal MPR images reviewed. All images stored on PACS. Automated exposure control was used as a dose optimization technique for this examination. CONTRAST TYPE/DOSE: 100mL of IOVERSOL 350 MG IODINE/ML INTRAVENOUS SYRINGE injected via intravenous COMPARISON: CT abdomen and pelvis 03/08/2021 FINDINGS: LOWER CHEST: Stable mild elevation of the right hemidiaphragm. LIVER: Normal size. No identified cystic or solid masses. GALLBLADDER: Normal. BILE DUCTS: No intrahepatic or extrahepatic ductal dilatation. SPLEEN: Normal size. No focal lesions. PANCREAS: There is subtle fat stranding about the inferior margin of the pancreatic head and uncinate process, which could be secondary to minimal focal pancreatitis. Recommend correlation to the patient's symptoms and laboratory findings. No peripancreatic fluid collection. No pancreatic ductal dilatation. ADRENALS: Normal. KIDNEYS/URINARY TRACT: No identified significant cystic or solid masses. No visualized stones. No hydronephrosis or hydroureter. Symmetric enhancement. Urinary bladder is unremarkable. GI: No dilated bowel loops. No obvious wall thickening. Normal appendix. Scattered diverticular disease without diverticulitis. PERITONEUM: No ascites or free air. RETROPERITONEUM: No mass or adenopathy. REPRODUCTIVE: Mild prostate enlargement measures 0.8 cm in diameter. VASCULATURE: No abdominal aortic aneurysm. MUSCULOSKELETAL: Fusion across L4-5. OTHER: Anterior abdominal wall hernia repair with mesh graft. IMPRESSION: Subtle fat stranding along the inferior margin of the pancreatic head and uncinate process, could reflect minimal focal pancreatitis. Suggest correlation to the patient's symptoms and laboratory findings. No peripancreatic fluid collection No bowel obstruction. Normal appendix. REFERENCE: Unless otherwise specified, no follow-up imaging is recommended for incidental renal and adrenal lesions per consensus recommendations based on imaging criteria. Further lab evaluation could be pursued based on clinical findings. Management of the Incidental Renal Mass on CT: A White Paper of the ACR Incidental Findings Committee. J Am Jake Radiol. 2018 Oct;15(2):264-273. Management of Incidental Adrenal Masses: A White Paper of the ACR Incidental Findings Committee. J Am Jake Radiol. 2017 Apr;14(8):4702-8608. THIS IS AN ELECTRONICALLY VERIFIED FINAL REPORT 10/26/2022 6:29 PM - Electronically signed by Eliazar Duran M.D. DL: BALWINDER Report ID: [id number] Reading Location: [place] [address] Procedure Note Eliazar Duran MD - 10/26/2022 EXAM DESCRIPTION: CT ABDOMEN PELVIS W CONTRAST REASON FOR STUDY: Constipation several days. Nausea. Bloating. TECHNIQUE: CT scan of the abdomen and pelvis performed with intravenousand without oral contrast using helical scanning technique with dynamic intravenous contrast injection. Reconstructed coronal and sagittal MPRimages reviewed. All images stored on PACS. Automated exposure control was used as a dose optimization technique forthis examination. CONTRAST TYPE/DOSE: 100mL of IOVERSOL 350 MG IODINE/ML INTRAVENOUSSYRINGE injected via intravenous COMPARISON: CT abdomen and pelvis 03/08/2021 FINDINGS: LOWER CHEST: Stable mild elevation of the right hemidiaphragm. LIVER: Normal size. No identified cystic or solid masses. GALLBLADDER: Normal. BILE DUCTS: No intrahepatic or extrahepatic ductal dilatation. SPLEEN: Normal size. No focal lesions. PANCREAS: There is subtle fat stranding about the inferior margin of the pancreatic head and uncinate process, which could be secondary to minimal focal pancreatitis. Recommend correlation to the patient's symptoms and laboratory findings. No peripancreatic fluid collection. No pancreatic ductal dilatation. ADRENALS: Normal. KIDNEYS/URINARY TRACT: No identified significant cystic or solid masses.No visualized stones. No hydronephrosis or hydroureter. Symmetricenhancement. Urinary bladder is unremarkable. GI: No dilated bowel loops. No obvious wall thickening. Normal appendix. Scattered diverticular disease without diverticulitis. PERITONEUM: No ascites or free air. RETROPERITONEUM: No mass or adenopathy. REPRODUCTIVE: Mild prostate enlargement measures 0.8 cm in diameter. VASCULATURE: No abdominal aortic aneurysm. MUSCULOSKELETAL: Fusion across L4-5. OTHER: Anterior abdominal wall hernia repair with mesh graft. IMPRESSION: Subtle fat stranding along the inferior margin of thepancreatic head and uncinate process, could reflect minimal focal pancreatitis.Suggest correlation to the patient's symptoms and laboratory findings. No peripancreatic fluid collection No bowel obstruction. Normal appendix. REFERENCE: Unless otherwise specified, no follow-up imaging is recommendedfor incidental renal and adrenal lesions per consensus recommendations basedon imaging criteria. Further lab evaluation could be pursued based onclinical findings. Management of the Incidental Renal Mass on CT: A White Paper of the ACR Incidental Findings Committee. J Am Jake Radiol. 2018 Oct;15(2):264-273. Management of Incidental Adrenal Masses: A White Paper of the ACRIncidental Findings Committee. J Am Jake Radiol. 2017 Apr;14(8):1174-8687. THIS IS AN ELECTRONICALLY VERIFIED FINAL REPORT 10/26/2022 6:29 PM - Electronically signed by Eliazar Duran M.D. DL: DL Report ID: [id number] Reading Location: [place] [address] PROCEDURES Final Result from Last 3 Months or Most Recently Relevant to Health Maintenance [place] [address] [employer] OPEN ACCESS [facility] MEDICARE ADVANTAGE [facility] MEDICARE ADVANTAGE Advance Directives For more information, please contact: [phone] * Full Code (Latest Code Status on File) Date Activated Date Inactivated Comments 10/26/2022 9:48 PM 10/29/2022 4:50 PM * Full Code Date Activated Date Inactivated Comments 08/13/2019 3:50 AM 08/14/2019 3:59 PM Care Teams Insurance Collector Relationship Specialty Start Date End Date Victoriano Rivera DO [address] [place] [address] PCP - General Internal Medicine 07/09/25 Jose L Draper MD Referring Physician Gastroenterology 01/21/20
--- OUTSIDE RECORDS SUMMARY | 2025-08-13 11:25 | XMS_ITS | Encounter Summary ---
Author Organization [facility] Address [address] [place] [address] Care Team Providers Care Car Restorer Name Role Phone Delon Powell MD Primary Care Provider [phone] Encounter Details Date Type Department Care Team (Late st Contact Info) Description 01/16/[address] 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 Received: 01/16/2020 12:59 PM Pathologist: [...] of a non-oriented ellipse of skin measuring [id number]. The epidermal surface is unremarkable. The margin [...] characteristic determined by the Dermatopathology Laboratory at [facility], directed by Dr. Jeffrey Thomas. These tests need not be, and therefore are not, approved by the [place] Food and Drug Administration. The tests are used for clinical purposes. Billing Codes Specimen Charges Stain Charges 87988 1 0 3:35 PM CDT DERMATOPATHOLOGY LABORATORY Embedded Images 0 3:35 PM CDT DERMATOPATHOLOGY LABORATORY Pathology/Cytolog y TISSUE SPECIMEN FROM SKIN / Unknown 01/15/2020 01/16/2020 12:59 PM CDT Vasu Dhaliwal MD LAB - PATHOLOGY/CYTOLOGY ORD ERABLES Edited Result - Final DERMATOPATHOLOGY LABORATORY [facility] - Department of Dermatology [address]th [place] [address], [facility] [phone] documented in this encounter Visit Diagnoses Not on filedocumented in this encounter Care Teams Car Restorer Relationship Specialty Start Date End Date Delon Powell MD [address] [place] [address] PCP - General 09/22/15 documented as of this encounter
== END 2025-08-13 09:01 | disposition home or self-care (01) ==
PROVIDERS: PCP Internal Medicine; Visit Provider Internal Medicine
DX: M25.511 Pain in right shoulder (principal)
CPT/HCPCS: 73030